=== PATIENT | female | born 1985 | race Caucasian/White ===

== ENCOUNTER 2021-01-10 21:37 | Emergency (ER) | payer BC, OTHER | END 2021-01-10 22:15 | disposition home or self-care (01) | LOC: NAV ERS 21:37 | DX: L23.7 Allergic contact dermatitis due to plants, except food (principal) | CPT/HCPCS: 99282 ==

== ENCOUNTER 2021-10-08 20:07 | Emergency (ER) | payer BC | END 2021-10-08 21:15 | disposition home or self-care (01) | LOC: NAV ERS 20:07 | DX: S09.90XA Unspecified injury of head, initial encounter (principal); W22.8XXA Striking against or struck by other objects, initial encounter | CPT/HCPCS: 70450 ==

== ENCOUNTER 2024-05-30 20:33 | Emergency (ER) | payer BC ==
[2024-05-30] MEDS ORDERED: Dexamethasone 4 mg/ml Vial ONE (20:43)
[2024-05-30] MEDS ORDERED: Sodium Chloride 0.9% 500 ML ONE (20:44)
[2024-05-30] MEDS ORDERED: Famotidine/PF 20 mg/2ml Vial ONE (20:44)
[2024-05-30] MEDS ORDERED: EPINEPHrine 1 MG/ML AMP ONE (20:44)
[2024-05-30 21:11] LABS: Bilirubin Negative (Negative); Blood, Urine Negative (Negative); Clarity Clear (Clear); Glucose, Urine (Dipstick) Negative (Negative); Ketone, Urine Negative (Negative); Leukocyte Trace (Negative); Nitrite Negative (Negative); Protein, Urine (Dipstick) Negative (Neg-Trace); Urobilinogen 0.2 mg/dL (Less than 2); pH, Urine 6.5 (5.0-9.0)
[2024-05-30 21:12] LABS: Pregnancy Test - Urine (BHCG) Negative (Negative); Pregu Control Background? CLEAR/WHITE (CLR/WHITE); Pregu Control Bar Appear? YES (CONTROL BAR)
[2024-05-30 21:15] LABS: Bacteria/HPF Rare-Few HPF (None Seen); CAUTI Indications for Culture Dysuria,urgency,freq; WBC/HPF 0-3 HPF (0-3)
[2024-05-30 21:17] LABS: Urine Culture Reflex No No
[2024-05-30] MEDS ORDERED: predniSONE 20 MG TAB ONE (21:26)
== END 2024-05-30 21:41 | disposition home or self-care (01) ==
LOC: NAV ERS 20:33
DX: T88.6XXA Anaphylactic reaction due to adverse effect of correct drug or medicament properly administered, initial encounter (principal); T36.8X5A Adverse effect of other systemic antibiotics, initial encounter
CPT/HCPCS: 81001; 81025; 96372; 96374; 96375; J0171; J1100; J3490; J7030; J7512

== ENCOUNTER 2024-06-02 02:59 | Emergency (ER) | payer BC ==
[2024-06-02] MEDS ORDERED: diphenhydrAMINE 50 MG/ML VIAL ONE (03:37)
[2024-06-02] MEDS ORDERED: methylPREDNISolone Sod Succ/PF 125 MG/2 ML VIAL ONE (03:37)
[2024-06-02] MEDS ORDERED: Sodium Chloride 0.9% 1,000 ML ONE (03:37)
[2024-06-02 03:39] LABS: #Lymphocytes 2.4 thou/uL (1.20-3.40); #Monocytes 0.5 thou/uL (0.11-0.59); #Neutrophils 5.3 thou/uL (1.40-6.50); %Basophils 0.5 % (0.0-1.0); %Eosinophils 0.1 % (0.0-10.0); %Lymphocytes 29.2 % (21.0-51.0); %Monocytes 6.1 % (0.0-10.0); %Neutrophils 64.1 % (42.0-75.0); Hematocrit 45.9 % (36.0-47.0); Hemoglobin 15.2 g/dL (12.0-16.0); Mean Corpuscular HGB CONC 33.1 g/dL (32.0-36.0); Mean Corpuscular Volume 90.5 fl (78.0-98.0); Mean Platelet Volume 7.8 fL (7.4-10.4); Platelet Count 327 10x3/uL (130-400); RBC Distribution Width 11.3 % (11.5-14.5); Red Blood Cell (RBC) Count 5.07 mill/uL (4.20-5.40); White Blood Cell (WBC) Count 8.3 10x3/uL (4.8-10.8)
[2024-06-02 03:56] LABS: ALT (SGPT) 22 U/L (8-55); AST (SGOT) 16 U/L (5-34); Albumin 4.3 g/dL (3.5-5.0); Alkaline Phosphatase 59 U/L (40-110); Anion Gap 15 mmol/L (10-20); BUN (Urea Nitrogen) 9 mg/dL (7.0-18.7); Bilirubin, Total 0.4 mg/dL (0.2-1.2); Calc. Creatinine Clearance 0 mL/min (70-130); Calcium 9.9 mg/dL (7.8-10.44); Carbon Dioxide 22 mmol/L (22-29); Chloride 105 mmol/L (98-107); Estimated GFR 92; Globulin 2.9 g/dL (2.4-3.5); Glucose 94 mg/dL (70-105); Potassium 3.6 mmol/L (3.5-5.1); Protein, Total 7.2 g/dL (6.0-8.3); Sodium 138 mmol/L (136-145)
== END 2024-06-02 06:55 | disposition home or self-care (01) ==
LOC: NAV ERS 02:59
DX: L50.0 Allergic urticaria (principal)
CPT/HCPCS: 80053; 85025; 96374; 96375; J1200; J2919; J7030